=== PATIENT | male | born 1990 | race Caucasian/White ===

== ENCOUNTER 2018-01-29 06:37 | Emergency (ER) | payer MEDICAID, OTHER ==
[~2018-01-29] VITALS: Ht 185.4 cm; Wt 87.4 kg
[2018-01-29] MEDS ORDERED: ONDANSETRON ODT 4 MG ONE (06:51)
[2018-01-29] MEDS ORDERED: ONDANSETRON ODT 4 MG PO ONE (07:00)
[2018-01-29 07:24] LABS: BASOPHILS # (AUTO) 0.07 x10^3/uL (0-0.1); BASOPHILS % (AUTO) 1 % (0-1); EOSINOPHILS # (AUTO) 0.19 x10^3/uL (0-0.4); EOSINOPHILS % (AUTO) 2 % (1-7); LYMPHOCYTES # (AUTO) 0.98 x10^3/uL (1-3.4); LYMPHOCYTES % (AUTO) 9 % (22-44); MD NO; MEAN CORPUSCULAR HEMOGLOBIN 28.4 pg (27.5-34.5); MEAN CORPUSCULAR HGB CONC 33.5 g/dL (33.2-36.2); MEAN CORPUSCULAR VOLUME 84.8 fL (81-97); MEAN PLATELET VOLUME 9.6 fL (7.4-10.4); MONOCYTES # (AUTO) 0.74 x10^3/uL (0.2-0.8); MONOCYTES % (AUTO) 7 % (2-9); NEUTROPHILS # (AUTO) 9.26 x10^3/uL (1.8-6.8); NEUTROPHILS % (AUTO) 82 % (42-75); PLATELET COUNT 250 x10^3/uL (130-400); RED BLOOD COUNT 5.83 x10^6/uL (4.38-5.82); RED CELL DISTRIBUTION WIDTH 13.8 % (9.4-14.8)
[2018-01-29 07:30] LABS: ALANINE AMINOTRANSFERASE 36 U/L (12-78); ALBUMIN 4.1 g/dL (3.4-5.0); ANION GAP 8 mmol/L (5-15); CALCIUM 8.8 mg/dL (8.5-10.1); CHLORIDE 102 mmol/L (98-107); CREATININE 1.07 mg/dL (0.7-1.3)
[2018-01-29 07:32] LABS: ALKALINE PHOSPHATASE 71 U/L (45-117); BILIRUBIN,TOTAL 0.6 mg/dL (0.2-1.0); TOTAL PROTEIN 7.7 g/dL (6.4-8.2)
[2018-01-29] MEDS ORDERED: MAALOX/HYOSCYAMINE/LIDOCAINE 45 ML BTL ONE (07:53)
[2018-01-29] MEDS ORDERED: MAALOX/HYOSCYAMINE/LIDOCAINE 45 ML BTL PO ONE (08:00)
[2018-01-29 08:53] VITALS: BP 124/71
== END 2018-01-29 08:55 | disposition home or self-care (01) ==
LOC: ED 08:36
DX: R11.2 Nausea with vomiting, unspecified (principal); R19.7 Diarrhea, unspecified
CPT/HCPCS: 36415; 74021; 80053; 83690; 85025; 99284; Q0162

== ENCOUNTER 2018-05-19 10:46 | Emergency (ER) | payer OTHER ==
[~2018-05-19] VITALS: Ht 185.4 cm; Wt 91.6 kg
[2018-05-19 10:51] VITALS: BP 134/85
[2018-05-19] MEDS ORDERED: DEXAMETHASONE 4 MG/ML, 5ML ONE (11:22)
[2018-05-19] MEDS ORDERED: DEXAMETHASONE 4 MG/ML, 1ML PO ONE (11:30)
[2018-05-19 11:54] LABS: RAPID INFLUENZA A Negative (Negative)
[2018-05-19 11:55] LABS: RAPID INFLUENZA B Negative (Negative)
--- NOTE | 2018-05-19 12:13 | NUR ---
Patient/Caregiver given discharge instructions and they have confirmed that they understand the instructions. Patient ambulatory with steady gait.
== END 2018-05-19 12:42 | disposition home or self-care (01) ==
LOC: ED 12:10
DX: B34.9 Viral infection, unspecified (principal)
CPT/HCPCS: 71046; 87081; 87400; 87880; 99284; J1100

== ENCOUNTER 2019-01-17 09:34 | Emergency (ER) | payer OTHER ==
[~2019-01-17] VITALS: Ht 182.9 cm; Wt 93.0 kg
[2019-01-17 09:37] VITALS: BP 148/85
--- NOTE | 2019-01-17 09:52 | NUR ---
PT REPORTS WAKING UP THIS AM AND IT BURNING WHILE HE PEED, HE THEN NOTED SOME CRUSTINESS AROUND HIS :"MARIO:" AND DECIDEDED TO COME IN RIGHT AWAY TO BE EVALUATED. PT DENIES BLADDER PAIN AND ABD PAIN. "ITS JUST MY UNIT DUDE:" UA COLLECTED FROM PT. CARLOSD IN TO [facility] PT
[2019-01-17 10:33] LABS: MICROSCOPIC AUTO
[2019-01-17 10:36] LABS: CULTURE INDICATED? NO
--- NOTE | 2019-01-17 11:07 | NUR ---
PT WITH NO NEEDS AT THIS TIME, PLACED FOR RECHECK
[2019-01-17] MEDS ORDERED: AZITHROMYCIN 500 MG TABLET ONE (11:20)
[2019-01-17] MEDS ORDERED: CEFTRIAXONE 250 MG ONE (11:20)
[2019-01-17] MEDS ORDERED: LIDOCAINE-MPF 1%, 2ML ONE (11:20)
[2019-01-17] MEDS ORDERED: AZITHROMYCIN 500 MG TABLET PO ONE (11:30)
[2019-01-17] MEDS ORDERED: CEFTRIAXONE 250 MG IM ONE (11:30)
== END 2019-01-17 11:30 | disposition home or self-care (01) ==
LOC: ED 10:15
DX: N34.1 Nonspecific urethritis (principal)
CPT/HCPCS: 81001; 87491; 87591; 96372; 99283; J0696

== ENCOUNTER 2019-04-01 14:36 | Emergency (ER) | payer OTHER ==
[~2019-04-01] VITALS: Ht 185.4 cm; Wt 91.9 kg
[2019-04-01 14:41] VITALS: BP 134/80
--- NOTE | 2019-04-01 15:28 | NUR ---
PT HERE TODAY FOR PAINFUL URINATION. RECENTLY HAD UNPROTECTED SEX. RESITNG ON GURNEY. ZAMUDIO. AWARE OF POC.
--- NOTE | 2019-04-01 15:31 | NUR ---
PT AMBULATED TO BATHROOM TO PROVIDE URINE SAMPLE NOW.
[2019-04-01] MEDS ORDERED: AZITHROMYCIN 500 MG TABLET ONE (15:35)
[2019-04-01] MEDS ORDERED: CEFTRIAXONE 250 MG ONE (15:35)
[2019-04-01] MEDS ORDERED: LIDOCAINE-MPF 1%, 2ML ONE (15:36)
--- NOTE | 2019-04-01 15:41 | NUR ---
PT MEDICATED PER EMAR.
[2019-04-01] MEDS ORDERED: AZITHROMYCIN 500 MG TABLET PO ONE (16:00)
[2019-04-01] MEDS ORDERED: CEFTRIAXONE 250 MG IM ONE (16:00)
== END 2019-04-01 15:56 | disposition home or self-care (01) ==
LOC: ED 15:53
DX: N34.2 Other urethritis (principal)
CPT/HCPCS: 87491; 87591; 96372; 99283; J0696

== ENCOUNTER 2019-04-23 14:33 | Emergency (ER) | payer OTHER ==
[~2019-04-23] VITALS: Ht 185.4 cm; Wt 91.8 kg
[2019-04-23 15:17] VITALS: BP 146/90
[2019-04-23] MEDS ORDERED: AZITHROMYCIN 500 MG TABLET PO ONE (15:30)
[2019-04-23] MEDS ORDERED: CEFTRIAXONE 250 MG IM ONE (15:30)
[2019-04-23] MEDS ORDERED: LIDOCAINE-MPF 1%, 5ML ONE (15:32)
[2019-04-23] MEDS ORDERED: AZITHROMYCIN 500 MG TABLET ONE (15:32)
[2019-04-23] MEDS ORDERED: CEFTRIAXONE 250 MG ONE (15:32)
== END 2019-04-23 16:01 | disposition home or self-care (01) ==
LOC: ED 15:44
DX: N50.819 Testicular pain, unspecified (principal); Z20.2 Contact with and (suspected) exposure to infections with a predominantly sexual mode of transmission
CPT/HCPCS: 87491; 87591; 96372; 99283; J0696